=== PATIENT | male | born 1960 | race Caucasian/White ===

== ENCOUNTER 2017-02-25 13:11 | Emergency (ER) | payer OTHER ==
[~2017-02-25] VITALS: Wt 108.9 kg
--- NOTE | ~2017-02-25 | EKG ---
[place], [place] ELECTROCARDIOGRAM REPORT NAME: PONCE RAVI UNIT #: [id number] ROOM: DOCTOR: LILIAM BAIN MD BIRTHDATE: [birth year] DOS: 02/25/2017 TIME: 1333 hours. Normal sinus rhythm at 66 beats per minute. Pacemaker is present ____. No previous tracing is available for comparison. LILIAM BAIN MD Chaya Cooney NP CM:EKGRPT:ELECTROCARDIOGRAM REPORT [phone] LILIAM BAIN MD
[~2017-02-25 13:11] MED LIST: ATIVAN1 MG PO; CEFUROXIME AXE250 MG PO; COREG12.5 MG PO; COUMADIN4 MG PO; FLOVENT 110 M110 MCG INH; HABITROL21 MG/24 H TD; KLONOPIN2 MG PO; LASIX40 MG PO; MOTRIN600 MG PO; MOTRIN800 MG PO; NICOTINE T21 MG/24 H T; OMEPRAZOLE20 MG PO; PERCOCET 325 MG1 TA3 PO; PREDNISONE5 MG PO; PROAIR HFA0.09 MG/AC IH; PROAIR HFA8.5 GM INH; SEROQUEL300 MG PO; SOMA350 MG PO; VIBRA-TAB100 MG PO; VICODIN 5/500 505 MG PO; ZESTRIL10 MG PO; ZESTRIL2.5 MG PO
[2017-02-25 13:39] LABS: BASO % 0.5 % (0.0-1.0); EOS # 0.1 10*3/uL (0.0-0.4); EOS % 1.3 % (1.0-4.0); HEMATOCRIT 41.2 % (42.0-52.0); HEMOGLOBIN 13.9 g/dl (14.0-18.0); LYMPH # 1.2 10*3/uL (1.3-4.4); LYMPH % 19.5 % (27.0-41.0); MEAN CELL VOLUME 93.2 fl (80.0-94.0); MEAN CORPUSCULAR HGB 31.4 pg (27.0-31.0); MEAN CORPUSCULAR HGB CONC 33.7 g/dl (33.0-37.0); MEAN PLATELET VOLUME 9.6 fl (9.6-12.3); MONO # 0.5 10*3/uL (0.1-1.0); MONO % 8.1 % (3.0-9.0); NEUT # 4.3 10*3/uL (2.3-7.9); NEUT % 69.3 % (47.0-73.0); PLATELET COUNT AUTOMATED 162 10*3/uL (130-400); RED BLOOD COUNT 4.42 10*6/uL (4.50-5.90); RED CELL DISTRI WIDTH 12.6 % (0-14.5); WHITE BLOOD COUNT 6.2 10*3/uL (4.8-10.8)
[2017-02-25 13:46] LABS: INTERNATIONAL NORM RATIO 2.8 (2.0-3.5)
[2017-02-25 13:58] LABS: ALBUMIN 3.4 gm/dl (3.1-4.5); ALKALINE PHOSPHATASE 110 U/L (45-117); BUN 13 mg/dl (7-24); CHLORIDE 110 mmol/L (98-107); CREATININE 0.89 mg/dL (0.70-1.30); POTASSIUM 4.1 mmol/L (3.5-5.1); SGOT/AST 26 IU/L (3-35); SGPT/ALT 31 U/L (12-78); SODIUM 140 mmol/L (136-145); TOTAL PROTEIN 6.8 gm/dL (6.4-8.2)
[2017-02-25 14:56] VITALS: BP 159/93
== END 2017-02-25 16:23 | disposition home or self-care (01) ==
LOC: ED 13:11
PROVIDERS: Emergency Medicine
DX: S06.0X1A Concussion with loss of consciousness of 30 minutes or less, initial encounter (principal); S32.019A Unspecified fracture of first lumbar vertebra, initial encounter for closed fracture; S01.03XA Puncture wound without foreign body of scalp, initial encounter; S01.512A Laceration without foreign body of oral cavity, initial encounter; I50.9 Heart failure, unspecified; Z86.73 Personal history of transient ischemic attack (TIA), and cerebral infarction without residual deficits; Z90.49 Acquired absence of other specified parts of digestive tract; Z98.890 Other specified postprocedural states; Z95.0 Presence of cardiac pacemaker; Z79.899 Other long term (current) drug therapy; Z79.01 Long term (current) use of anticoagulants; Z88.8 Allergy status to other drugs, medicaments and biological substances; V49.88XA Car occupant (driver) (passenger) injured in other specified transport accidents, initial encounter; Y93.89 Activity, other specified; Y92.413 State road as the place of occurrence of the external cause; Y99.9 Unspecified external cause status

== ENCOUNTER 2017-03-04 12:51 | Emergency (ER) | payer OTHER ==
[~2017-03-04] VITALS: Ht 185.4 cm; Wt 108.9 kg
[~2017-03-04 12:51] MED LIST changes: +KLONOPIN2 M1 PO; -KLONOPIN2 MG PO; +PERCOCET 7.5-31 EACH PO
[2017-03-04 13:01] VITALS: BP 120/70
[2017-03-04] MEDS ORDERED: NAPROSYN500 MG PO (14:42)
[2017-03-05] MEDS ORDERED: COZAAR50 M1 PO (22:23)
[2017-03-05] MEDS ORDERED: ZOLOFT50 MG PO (22:23)
== END 2017-03-04 15:42 | disposition home or self-care (01) ==
LOC: ED 12:51
DX: M79.652 Pain in left thigh (principal); F17.200 Nicotine dependence, unspecified, uncomplicated; Z90.49 Acquired absence of other specified parts of digestive tract; Z98.890 Other specified postprocedural states; Z79.899 Other long term (current) drug therapy; Z79.01 Long term (current) use of anticoagulants; Z88.8 Allergy status to other drugs, medicaments and biological substances

== ENCOUNTER 2017-03-05 13:40 | Inpatient (IN) | payer OTHER ==
[~2017-03-05] VITALS: Ht 185.4 cm; Wt 112.0 kg
[~2017-03-05 13:40] MED LIST changes: +NAPROSYN500 MG PO
[2017-03-05 13:48] VITALS: BP 153/75
--- NOTE | 2017-03-05 17:40 | NUR ---
PT RESTING QUIETY NO DISTRESS NOTED.
[2017-03-05 19:51] VITALS: BP 140/89
[2017-03-05 20:06] VITALS: BP 149/92
--- NOTE | 2017-03-05 20:06 | NUR ---
PATIENT RESTING IN BED VSS, STATES MINIMAL RELIEF WITH PAIN MEDS, RATES PAIN AT 8/10
[2017-03-05 21:25] VITALS: BP 165/75
--- NOTE | 2017-03-05 21:25 | NUR ---
Time: 2124 A 56 year old MALE admitted to 5E under services of DR. JIA KING,RICHARD Wooten Pt. arrived via bed from ER. Chief complaint: CLOSED LEFT HIP FRACTURE. ANGEL LUIS SANCHEZ
--- NOTE | 2017-03-05 22:09 | NUR ---
DR. RO CALLED AWARE OF PT ON FLOOR. ORDERS TAKEN AND REVIEWED.
[2017-03-05] MEDS ORDERED: COZAAR50 M1 PO (22:23)
[2017-03-05] MEDS ORDERED: ZOLOFT50 MG PO (22:23)
--- NOTE | 2017-03-05 23:30 | NUR ---
PT C/O LOWER BACK PAIN, RATES PAIN 10 ON PAIN SCALE 0-10. MEDICATED WITH PERCOCET TWO TAB PO PER PT REQUEST. SEE EMAR. TOLERATED ROUTINE MED WITH NO PROBLEM. PT ADVISED TO STAY NONWT BEARING TO LEFT LEG. ALSO TRIED TO ENCOURAGED PLACEMENT OF IMMOBILIZER TO LEFT LEG, PT REFUSES STATES HE HAS BEEN WALKING ON IT AND DON'T NEED IMMOBILIZER. CALL LIGHT IN REACH.
[2017-03-06] VITALS: BP 145/82
--- NOTE | 2017-03-06 00:20 | NUR ---
PT SLEEPING IN BED ON RIGHT SIDE. RESP-EASY AND REGULAR. MEDICATION EFFECTIVE. CALL LIGHT IN REACH.
--- NOTE | 2017-03-06 04:00 | NUR ---
SLEEPING IN BED. RESP-EASY AND REGULAR. CALL LIGHT IN REACH.
--- NOTE | 2017-03-06 05:56 | NUR ---
CALLED DR. RO MADE AWARE PT GOT BED AT [facility]. OK TO DISCHARGE CONTINUE MEDS.
--- NOTE | 2017-03-06 06:09 | NUR ---
MADE PT AWARE OF TRANSFER TO [facility]. PT WENT TO GO TO BATHROOM WAS ASK AND EDUCATED ABOUT IMPORTANCE TO WEAR THE IMMOBILIZER AND NOT PUT WEIGHT ON LEFT LEG. HE REFUSED TO PUT IMMOBLIIZER ON AND REFUSES TO NOT WALK ON HIS LEG. PT STATES ITS NOT HIS LEG ITS HIS BACK PER PT. ALSO WAS EDUCATED REGARDING WHY HE SHOULD NOT WALK ON LEG. CALL LIGHT IN REACH. WAITING FOR AMBULANCE.
--- NOTE | 2017-03-06 06:44 | NUR ---
CALLED [facility] GAVE REPORT TO JULIA CASTILLO.
--- NOTE | 2017-03-06 07:20 | NUR ---
PT AMBULATORY TO DESK UPSET CAUSE HE COULDN'T ORDER A CUP OF COFFEE. CURSING AND UPSET. I CALLED [facility] THEY STATE ITS OK TO HAVE COFFEE AND LIGHT BREAKFAST. MADE PT AWARE HE IS HAPPY NOW.
--- NOTE | 2017-03-06 07:52 | NUR ---
PT STATES BACK PAIN 01/21, COMPLAINS OF LEFT LEG PAIN 12/21. PERCOCET GIVEN. SEE MAR. PT IS TO BE PICKED UP BY AMBULANCE AT 8 AM FOR TRANSFER TO [facility]. WILL CONTINUE TO MONITOR PATIENT FOR NEEDS
[2017-03-06 08:00] VITALS: BP 129/75
--- NOTE | 2017-03-06 08:59 | NUR ---
PT STATES PERCOCET HELPED WITH PAIN. PT REMINDED HE IS TO BE NWB TO LEFT LEG AND IS SUPPOSED TO BE IN AN IMMOBILIZER. PT REFUSES TO WEAR IMMOBILIZER AND HAS BEEN UP OUT OF BED WITH CANE. PT STATES HE KNOWS WHERE THE PROBLEM IS AND HE DOESN'T NEED TO STAY IN BED FOR THE PROBLEM. MANAGER PARKING SPOKE TO [facility] AND THEY WILL BE ARRIVING SHORTLY TO GET PATIENT FOR TRANSFER TO [facility]
--- NOTE | 2017-03-06 09:17 | NUR ---
LUIS ALFREDO PICKED UP PATIENT FOR TRANSPORT TO [facility]
== END 2017-03-06 09:17 | disposition short-term general hospital (02) | DRG 556 ==
LOC: ED 13:40 → EDHOLD 19:42 → 5E 19:42
PROVIDERS: ADMIT Internal Medicine
DX: M25.552 Pain in left hip (principal); I50.9 Heart failure, unspecified; S72.02 Fracture of epiphysis (separation) (upper) of femur; J44.9 Chronic obstructive pulmonary disease, unspecified; X58.XXXD Exposure to other specified factors, subsequent encounter; Z86.73 Personal history of transient ischemic attack (TIA), and cerebral infarction without residual deficits; Z95.810 Presence of automatic (implantable) cardiac defibrillator; Z90.49 Acquired absence of other specified parts of digestive tract; Z79.899 Other long term (current) drug therapy; Z88.8 Allergy status to other drugs, medicaments and biological substances; Z90.89 Acquired absence of other organs; Z82.49 Family history of ischemic heart disease and other diseases of the circulatory system

== ENCOUNTER → 2019-07-06 | Outpatient (CLI) | payer OTHER ==
[~2019-07-06] MED LIST changes: +COZAAR50 M1 PO; +ZOLOFT50 MG PO
[2019-07-06 14:35] LABS: BASO # 0.1 10*3/uL (0.0-0.1); BASO % 0.8 % (0.0-1.0); EOS # 0.1 10*3/uL (0.0-0.4); EOS % 1.1 % (1.0-4.0); HEMATOCRIT 43.9 % (42.0-52.0); HEMOGLOBIN 14.6 g/dl (14.0-18.0); LYMPH % 27.6 % (27.0-41.0); MEAN CELL VOLUME 94.4 fl (80.0-94.0); MEAN CORPUSCULAR HGB 31.4 pg (27.0-31.0); MEAN CORPUSCULAR HGB CONC 33.3 g/dl (33.0-37.0); MEAN PLATELET VOLUME 9.5 fl (9.6-12.3); MONO # 0.7 10*3/uL (0.1-1.0); MONO % 9.8 % (3.0-9.0); NEUT # 4.3 10*3/uL (2.3-7.9); NEUT % 60.4 % (47.0-73.0); PLATELET COUNT AUTOMATED 232 10*3/uL (130-400); RED BLOOD COUNT 4.65 10*6/uL (4.50-5.90); RED CELL DISTRI WIDTH 12.4 % (0-14.5); WHITE BLOOD COUNT 7.1 10*3/uL (4.8-10.8)
[2019-07-06 15:04] LABS: ALKALINE PHOSPHATASE 103 U/L (45-117); BUN 12 mg/dl (7-24); CHLORIDE 106 mmol/L (98-107); CHOLESTEROL 212 mg/dL (<200); CREATININE 0.94 mg/dL (0.70-1.30); FREE T4 0.72 ng/dl (0.76-1.46); HDL CHOLESTEROL 35 mg/dl (40-60); LDL CHOLESTEROL 123 mg/dL (9-159); POTASSIUM 3.9 mmol/L (3.5-5.1); SGOT/AST 24 IU/L (3-35); SGPT/ALT 41 U/L (12-78); SODIUM 141 mmol/L (136-145); TOTAL PROTEIN 7.5 gm/dL (6.4-8.2); TRIGLYCERIDES 269 mg/dl (<150); VLDL CHOLESTEROL 54 mg/dL (6-40)
[2019-07-06 15:30] LABS: VITAMIN D, 25-HYDROXY 24.7 ng/mL (30-100)
== END | disposition home or self-care (01) ==
LOC: LAB 13:32 → CARD 14:00
PROVIDERS: Internal Medicine
DX: Z13.1 Encounter for screening for diabetes mellitus (principal); I10 Essential (primary) hypertension; E78.2 Mixed hyperlipidemia; E55.9 Vitamin D deficiency, unspecified; R06.02 Shortness of breath

== ENCOUNTER → 2020-07-03 | Outpatient (CLI) | payer OTHER | END | disposition home or self-care (01) | LOC: RAD 12:49 | PROVIDERS: ATTEND Internal Medicine | DX: M25.461 Effusion, right knee (principal); M25.561 Pain in right knee ==

== ENCOUNTER → 2020-07-19 | Outpatient (CLI) | payer OTHER ==
[2020-07-19 11:29] LABS: BASO % 0.6 % (0.0-1.0); EOS # 0.1 10*3/uL (0.0-0.4); EOS % 1.9 % (1.0-4.0); HEMATOCRIT 45.2 % (42.0-52.0); LYMPH # 1.8 10*3/uL (1.3-4.4); LYMPH % 28.8 % (27.0-41.0); MEAN CELL VOLUME 93.2 fl (80.0-94.0); MEAN CORPUSCULAR HGB 30.7 pg (27.0-31.0); MEAN PLATELET VOLUME 9.6 fl (9.6-12.3); MONO # 0.9 10*3/uL (0.1-1.0); MONO % 13.7 % (3.0-9.0); NEUT # 3.4 10*3/uL (2.3-7.9); NEUT % 54.5 % (47.0-73.0); PLATELET COUNT AUTOMATED 235 10*3/uL (130-400); RED BLOOD COUNT 4.85 10*6/uL (4.50-5.90); RED CELL DISTRI WIDTH 12.4 % (0-14.5); WHITE BLOOD COUNT 6.2 10*3/uL (4.8-10.8)
== END | disposition home or self-care (01) ==
LOC: LAB 10:52
PROVIDERS: ATTEND Orthopaedic Surgery
DX: M17.11 Unilateral primary osteoarthritis, right knee (principal); M25.461 Effusion, right knee

== ENCOUNTER → 2020-08-21 | Outpatient (CLI) | payer OTHER ==
[2020-08-21 12:27] LABS: BASO # 0.1 10*3/uL (0.0-0.1); BASO % 0.7 % (0.0-1.0); EOS # 0.1 10*3/uL (0.0-0.4); EOS % 0.7 % (1.0-4.0); HEMATOCRIT 42.8 % (42.0-52.0); LYMPH # 1.4 10*3/uL (1.3-4.4); LYMPH % 20.2 % (27.0-41.0); MEAN CELL VOLUME 91.8 fl (80.0-94.0); MEAN CORPUSCULAR HGB 31.5 pg (27.0-31.0); MEAN CORPUSCULAR HGB CONC 34.3 g/dl (33.0-37.0); MONO # 0.6 10*3/uL (0.1-1.0); MONO % 8.4 % (3.0-9.0); NEUT % 69.7 % (47.0-73.0); PLATELET COUNT AUTOMATED 251 10*3/uL (130-400); RED BLOOD COUNT 4.66 10*6/uL (4.50-5.90); RED CELL DISTRI WIDTH 12.5 % (0-14.5); WHITE BLOOD COUNT 7.1 10*3/uL (4.8-10.8)
[2020-08-21 12:52] LABS: URIC ACID 6.2 mg/dL (3.5-7.2)
== END | disposition home or self-care (01) ==
LOC: LAB 11:37
PROVIDERS: ATTEND Orthopaedic Surgery
DX: M25.571 Pain in right ankle and joints of right foot (principal); M25.461 Effusion, right knee

== ENCOUNTER → 2021-06-04 | Outpatient (CLI) | payer OTHER | END | disposition home or self-care (01) | LOC: US 09:30 | PROVIDERS: ATTEND Internal Medicine | DX: I73.9 Peripheral vascular disease, unspecified (principal) ==

== ENCOUNTER → 2021-08-25 | Outpatient (CLI) | payer OTHER | END | disposition home or self-care (01) | LOC: RAD 13:56 | PROVIDERS: ATTEND Internal Medicine | DX: I51.7 Cardiomegaly (principal); I25.10 Atherosclerotic heart disease of native coronary artery without angina pectoris; I77.819 Aortic ectasia, unspecified site ==

== ENCOUNTER → 2022-03-11 | Outpatient (CLI) | payer OTHER | END | disposition home or self-care (01) | LOC: CARD 11:14 | PROVIDERS: ATTEND Internal Medicine Cardiovascular Disease | DX: I34.8 Other nonrheumatic mitral valve disorders (principal) ==

== ENCOUNTER → 2022-06-04 | Outpatient (CLI) | payer OTHER ==
[2022-06-04 13:29] LABS: BASO # 0.1 10*3/uL (0.0-0.1); BASO % 0.6 % (0.0-1.0); EOS # 0.1 10*3/uL (0.0-0.4); EOS % 0.6 % (1.0-4.0); HEMATOCRIT 44.4 % (42.0-52.0); LYMPH # 1.6 10*3/uL (1.3-4.4); LYMPH % 18.9 % (27.0-41.0); MEAN CELL VOLUME 93.9 fl (80.0-94.0); MEAN CORPUSCULAR HGB 31.3 pg (27.0-31.0); MEAN CORPUSCULAR HGB CONC 33.3 g/dl (33.0-37.0); MEAN PLATELET VOLUME 9.2 fl (9.6-12.3); MONO # 0.8 10*3/uL (0.1-1.0); MONO % 8.8 % (3.0-9.0); NEUT % 70.4 % (47.0-73.0); PLATELET COUNT AUTOMATED 205 10*3/uL (130-400); RED BLOOD COUNT 4.73 10*6/uL (4.50-5.90); RED CELL DISTRI WIDTH 13.4 % (0-14.5); WHITE BLOOD COUNT 8.6 10*3/uL (4.8-10.8)
[2022-06-04 13:47] LABS: ALKALINE PHOSPHATASE 121 U/L (46-116); BUN 15 mg/dl (9-23); CHLORIDE 104 mmol/L (98-107); CHOLESTEROL 199 mg/dL (<200); CREATININE 0.88 mg/dL (0.70-1.30); FREE T4 0.93 ng/dl (0.89-1.76); LDL CHOLESTEROL 106 mg/dL (9-159); POTASSIUM 4.4 mmol/L (3.4-5.1); SGPT/ALT 64 U/L (10-49); SODIUM 136 mmol/L (136-145); THYROID STIM HORMONE (HS) 3.933 uIU/ml (0.550-4.780); TRIGLYCERIDES 157 mg/dl (<150)
[2022-06-04 14:19] LABS: VITAMIN D, 25-HYDROXY 17.6 ng/mL (30-100)
== END | disposition home or self-care (01) ==
LOC: LAB 13:02
PROVIDERS: ATTEND Internal Medicine
DX: Z13.820 Encounter for screening for osteoporosis (principal); Z13.89 Encounter for screening for other disorder; Z13.0 Encounter for screening for diseases of the blood and blood-forming organs and certain disorders involving the immune mechanism; Z12.5 Encounter for screening for malignant neoplasm of prostate; E55.9 Vitamin D deficiency, unspecified; I10 Essential (primary) hypertension; Z13.1 Encounter for screening for diabetes mellitus; Z13.21 Encounter for screening for nutritional disorder; Z13.220 Encounter for screening for lipoid disorders; Z13.228 Encounter for screening for other metabolic disorders; Z13.6 Encounter for screening for cardiovascular disorders; Z13.9 Encounter for screening, unspecified; I25.10 Atherosclerotic heart disease of native coronary artery without angina pectoris; M85.88 Other specified disorders of bone density and structure, other site; I70.0 Atherosclerosis of aorta; Z90.49 Acquired absence of other specified parts of digestive tract; R06.02 Shortness of breath

== ENCOUNTER → 2022-11-13 | Outpatient (CLI) | payer OTHER ==
[~2022-11-13] MED LIST changes: +BUMETANIDE2 MG PO; +ENTRESTO 24 MG1 EACH PO; +HYDROXYZINE HCL50 MG PO; +LOVASTATIN40 MG PO; +MIRTAZAPINE15 M1 PO; +POTASSIUM CHLOR8 MEQ PO; +TOPROL XL25 MG PO; +VITAMIN D31250 MC1 PO; +WARFARIN SOD5 MG PO
[2022-11-13 09:04] LABS: BASO % 0.4 % (0.0-1.0); EOS # 0.1 10*3/uL (0.0-0.4); EOS % 0.5 % (1.0-4.0); HEMATOCRIT 43.4 % (42.0-52.0); LYMPH # 1.6 10*3/uL (1.3-4.4); LYMPH % 17.1 % (27.0-41.0); MEAN CELL VOLUME 91.8 fl (80.0-94.0); MEAN CORPUSCULAR HGB 31.5 pg (27.0-31.0); MEAN CORPUSCULAR HGB CONC 34.3 g/dl (33.0-37.0); MONO # 0.7 10*3/uL (0.1-1.0); MONO % 7.3 % (3.0-9.0); NEUT # 6.9 10*3/uL (2.3-7.9); NEUT % 74.2 % (47.0-73.0); PLATELET COUNT AUTOMATED 207 10*3/uL (130-400); RED BLOOD COUNT 4.73 10*6/uL (4.50-5.90); RED CELL DISTRI WIDTH 12.5 % (0-14.5); WHITE BLOOD COUNT 9.3 10*3/uL (4.8-10.8)
[2022-11-13 09:42] LABS: ALKALINE PHOSPHATASE 117 U/L (46-116); BUN 14 mg/dl (9-23); CHLORIDE 104 mmol/L (98-107); CHOLESTEROL 157 mg/dL (<200); LDL CHOLESTEROL 83 mg/dL (9-159); POTASSIUM 3.6 mmol/L (3.4-5.1); SGPT/ALT 21 U/L (10-49); TOTAL PROTEIN 7.3 gm/dL (6.0-8.0); TRIGLYCERIDES 202 mg/dl (<150)
== END | disposition home or self-care (01) ==
LOC: LAB 00:20 → CARD 00:20
PROVIDERS: ATTEND Internal Medicine
DX: N40.0 Benign prostatic hyperplasia without lower urinary tract symptoms (principal); R06.02 Shortness of breath

== ENCOUNTER → 2022-12-09 | Outpatient (CLI) | payer OTHER | END | disposition home or self-care (01) | LOC: US 00:31 | PROVIDERS: ATTEND Internal Medicine | DX: I65.23 Occlusion and stenosis of bilateral carotid arteries (principal); R42 Dizziness and giddiness; I25.10 Atherosclerotic heart disease of native coronary artery without angina pectoris ==

== ENCOUNTER → 2023-03-25 | Outpatient (CLI) | payer OTHER | END | disposition home or self-care (01) | LOC: CARD 11:31 | PROVIDERS: ATTEND Internal Medicine | DX: I34.81 Nonrheumatic mitral (valve) annulus calcification (principal); I31.39 Other pericardial effusion (noninflammatory); I42.9 Cardiomyopathy, unspecified; R06.02 Shortness of breath ==

== ENCOUNTER → 2023-05-25 | Outpatient (CLI) | payer OTHER ==
[2023-05-25 12:03] LABS: BASO # 0.1 10*3/uL (0.0-0.1); BASO % 0.6 % (0.0-1.0); EOS % 0.5 % (1.0-4.0); LYMPH # 1.7 10*3/uL (1.3-4.4); LYMPH % 19.8 % (27.0-41.0); MEAN CELL VOLUME 93.5 fl (80.0-94.0); MEAN CORPUSCULAR HGB 31.1 pg (27.0-31.0); MEAN CORPUSCULAR HGB CONC 33.3 g/dl (33.0-37.0); MEAN PLATELET VOLUME 9.6 fl (9.6-12.3); MONO # 0.8 10*3/uL (0.1-1.0); MONO % 9.6 % (3.0-9.0); NEUT % 69.2 % (47.0-73.0); PLATELET COUNT AUTOMATED 218 10*3/uL (130-400); RED BLOOD COUNT 4.28 10*6/uL (4.50-5.90); RED CELL DISTRI WIDTH 13.2 % (0-14.5); WHITE BLOOD COUNT 8.7 10*3/uL (4.8-10.8)
[2023-05-25 12:39] LABS: ALKALINE PHOSPHATASE 142 U/L (46-116); BUN 17 mg/dl (9-23); CHLORIDE 106 mmol/L (98-107); CHOLESTEROL 139 mg/dL (<200); FREE T4 0.99 ng/dl (0.89-1.76); LDL CHOLESTEROL 80 mg/dL (9-159); POTASSIUM 4.1 mmol/L (3.4-5.1); SGPT/ALT 34 U/L (5-49); TOTAL PROTEIN 7.2 gm/dL (6.0-8.0); TRIGLYCERIDES 96 mg/dl (<150)
[2023-05-25 12:41] LABS: VITAMIN D, 25-HYDROXY 25.7 ng/mL (30-100)
== END | disposition home or self-care (01) ==
LOC: LAB 11:25
PROVIDERS: ATTEND Internal Medicine
DX: Z13.0 Encounter for screening for diseases of the blood and blood-forming organs and certain disorders involving the immune mechanism (principal); Z13.1 Encounter for screening for diabetes mellitus; Z13.21 Encounter for screening for nutritional disorder; Z13.220 Encounter for screening for lipoid disorders; Z13.228 Encounter for screening for other metabolic disorders; Z13.29 Encounter for screening for other suspected endocrine disorder; Z13.6 Encounter for screening for cardiovascular disorders; Z13.89 Encounter for screening for other disorder; Z13.9 Encounter for screening, unspecified; E78.2 Mixed hyperlipidemia; I10 Essential (primary) hypertension; J18.9 Pneumonia, unspecified organism; J84.10 Pulmonary fibrosis, unspecified

== ENCOUNTER → 2023-06-24 | Outpatient (CLI) | payer OTHER | END | disposition home or self-care (01) | LOC: LAB 12:21 | PROVIDERS: ATTEND Internal Medicine | DX: D64.9 Anemia, unspecified (principal); R79.89 Other specified abnormal findings of blood chemistry ==